=== PATIENT | female | born 1975 | race Two or more races ===

== ENCOUNTER 2018-12-14 13:15 | Inpatient (IN) | payer OTHER ==
[~2018-12-14] VITALS: Ht 160 cm; Wt 77.1 kg
[2018-12-14] MEDS ORDERED: CETIRIZINE HCL5 M1 PO (16:23)
[2018-12-14] MEDS ORDERED: TYLENOL325 MG PO (16:23)
== END 2018-12-18 13:01 | disposition home or self-care (01) | DRG 743 ==
LOC: EDSTATUS 13:15 → ADM 13:15 → SURH 12-15 09:20 → O/R 12-15 09:20 → SURH 12-15 13:15
PROVIDERS: ADMIT Obstetrics & Gynecology
PROC: 0UT70ZZ Resection of Bilateral Fallopian Tubes, Open Approach (ICD-10-PCS; 2018-12-15)
PROC: 0UT90ZZ Resection of Uterus, Open Approach (ICD-10-PCS; principal; 2018-12-15 13:45)
DX: D25.1 Intramural leiomyoma of uterus (principal); N72 Inflammatory disease of cervix uteri